=== PATIENT | female | born 1935 | race Caucasian/White ===

== ENCOUNTER 2018-04-10 15:28 | Observation (INO) ==
[2018-04-10] MEDS ORDERED: Morphine Sulfate Inj 8 MG/ML Vial IV.PUSH ONE (16:11)
[2018-04-10] MEDS ORDERED: Pantoprazole Inj 40 MG Vial IV.PUSH ONE (16:11)
[2018-04-10] MEDS ORDERED: Sod Chloride 0.9% Inj 1,000 ML IV.CONT SCH ×2 (16:15→20:00)
--- NOTE | 2018-04-10 16:48 | ED ---
HPI General Chief Complaint: Abdominal Pain Stated Complaint: sickness Time Seen by Provider: 04/10/18 15:56 History of Present Illness HPI narrative: 89-year-old female status post Y 90 procedure status post 5 days ago, presents today with complaints of worsening epigastric pain and pain under her ribs radiating to her back. Patient states that she called the interventional radiology department and they told her to come into the hospital she was likely having pain related to the procedure. She denies any fevers, chills. She denies any blood in her vomit. She denies any diarrhea. There are no other complaints at the time of my examination. Related Data Home Medications Medication Instructions Recorded Confirmed escitalopram oxalate [Lexapro] 10 mg PO DAILY 03/26/18 04/10/18 levothyroxine 75 mcg PO DAILY 03/26/18 04/10/18 lorazepam 1 mg PO BID 03/26/18 04/10/18 omeprazole magnesium [Prilosec OTC] 20 mg PO DAILY 03/26/18 04/10/18 Allergies Allergy/AdvReac Type Severity Reaction Status Date / Time cephalexin [From Keflex] AdvReac Severe Nausea Verified 04/05/18 10:39 Review of Systems ROS: all other systems reviewed are negative Constitutional Denies chills and Denies fever(s) Eyes Reports system reviewed and no additional complaints, except as docu ENT Reports system reviewed and no additional complaints, except as docu Cardiovascular Denies chest pain and Denies dyspnea Respiratory Denies chest congestion and Denies cough Gastrointestinal Reports abdominal pain (Epigastric under the ribs radiating to the back.), Denies hematochezia, Denies coffee ground emesis, Denies dyspepsia, Reports nausea and Reports vomiting Genitourinary Reports system reviewed and no additional complaints, except as docu Musculoskeletal Reports back pain and Denies neck pain Neurologic Denies headache(s), Denies focal weakness and Denies paresthesias [facility] Social History Social History Substance History: No History of Abuse Second Hand Smoke Exposure: No Smoking Status: Never smoker How Often Do You Have a Drink Containing Alcohol: Never [facility] within the Last 8 Weeks: No Recent Out of Country Travel within the Last 8 Weeks: No Immunization History Tetanus Immunization: Unsure Exam Narrative Exam Narrative: GENERAL: Well-developed well-nourished female in no acute respiratory distress. Patient does appear to be in discomfort. SKIN: Focused skin assessment warm/dry. HEAD: Atraumatic. Normocephalic. EYES: No scleral icterus. No injection or drainage. ENT: No nasal bleeding or discharge. Mucous membranes pink and moist. NECK: Trachea midline. Supple. CARDIOVASCULAR: Regular rate and rhythm. No murmur appreciated. RESPIRATORY: No accessory muscle use. Clear to auscultation. Breath sounds equal bilaterally. GASTROINTESTINAL: Abdomen soft, nondistended. Patient has subjective discomfort in epigastric area. No rebound or guarding. MUSCULOSKELETAL: No obvious deformities. No clubbing. No cyanosis. No edema. NEUROLOGICAL: Awake and alert. No obvious cranial nerve deficits. Motor grossly within normal limits. Normal speech. Course Initial Documented Vital Signs Temperature 98.2 F 04/10/18 15:46 Pulse Rate 77 04/10/18 15:46 Respiratory Rate 18 04/10/18 15:46 Blood Pressure 150/68 H 04/10/18 15:46 Pulse Oximetry 99 04/10/18 15:46 Last Documented Vital Signs Temperature 97.7 F 04/11/18 04:00 Pulse Rate 82 04/11/18 04:00 Respiratory Rate 16 04/11/18 04:00 Blood Pressure 159/83 H 04/11/18 04:00 Pulse Oximetry 97 04/11/18 04:00 Medical Decision Making [facility] Narrative Medical decision making narrative: 82-year-old female with T of hepatic cancer, presents today with complaints of ear pain under her ribs and epigastrium. Patient had a Y 90 procedure 5 days prior. Patient's labs are within normal limits. She is been medicated with morphine and an antiemetic. She is been given IV fluid. I spoke with the interventional radiologist who recommended we bring her in for bowel rest and IV fluids. Patient is amenable to this plan. Medical Screen Exam Complete: Yes Emergency Medical Condition: Yes Differential Diagnosis Differential Diagnosis: Pancreatitis versus perforated viscus versus metabolic derangement Lab Data Result diagrams: 04/11/18 06:23 04/10/18 16:48 Lab Results 04/10/18 04/10/18 04/11/18 Range/Units 16:47 16:48 06:23 WBC 7.7 7.2 (4.0-11.0) th/mm3 RBC 3.93 L 3.92 L (4.00-5.30) mil/mm3 Hgb 12.1 11.5 L (11.6-15.3) gm/dL Hct 35.0 35.3 (35.0-46.0) % MCV 89.2 90.1 (80.0-100.0) fL MCH 30.7 29.2 (27.0-34.0) pg MCHC 34.5 32.4 (32.0-36.0) % RDW 15.0 15.2 (11.6-17.2) % Plt Count 253 211 (150-450) th/mm3 MPV 7.7 7.6 (7.0-11.0) fL Neut % (Auto) 76.3 H 85.6 H (16.0-70.0) % Lymph % (Auto) 7.4 L 3.6 L (9.0-44.0) % [place] % (Auto) 14.6 H 10.4 H (0.0-8.0) % Eos % (Auto) 1.3 0.0 (0.0-4.0) % Baso % (Auto) 0.4 0.4 (0.0-2.0) % Neut # (Auto) 5.9 6.2 (1.8-7.7) th/mm3 Lymph # (Auto) 0.6 L 0.3 L (1.0-4.8) th/mm3 [place] # (Auto) 1.1 H 0.8 (0.0-0.9) th/mm3 Eos # (Auto) 0.1 0.0 (0.0-0.4) th/mm3 Baso # (Auto) 0.0 0.0 (0.0-0.2) th/mm3 WBC Differential . . Differential Comment Auto diff final Auto diff final Sodium 135 L (136-145) meq/L Potassium 3.8 (3.5-5.1) meq/L Chloride 97 L (98-107) meq/L Carbon Dioxide 31.6 (21.0-32.0) meq/L Anion Gap 6 (5-15) meq/L BUN 12 (7-18) mg/dL Creatinine 0.82 (0.50-1.00) mg/dL Estimated GFR 67 L (>89) mL/min Random Glucose 106 (74-106) mg/dL Calcium 8.9 (8.5-10.1) mg/dL Magnesium 2.0 (1.5-2.5) mg/dL Total Bilirubin 1.2 H (0.2-1.0) mg/dL AST 163 H (15-37) U/L ALT 122 H (10-53) U/L Alkaline Phosphatase 423 H (45-117) U/L Total Protein 7.2 (6.4-8.2) g/dL Albumin 3.0 L (3.4-5.0) g/dL Amylase 32 (25-115) U/L Lipase 124 (73-393) U/L Imaging Data Radiologist's impression: Abdomen X-Ray 04/10/18 16:33 CONCLUSION: Unremarkable upright abdomen. Discharge Plan Discharge Disposition Patient Disposition: ED Admit(ED Internal Use Only) Discharge Order Discharge Orders: ED Use Only Admit Order (Routine); Ordered 04/10/18 Ordered By: Favian Coronado Discharge Details Diagnosis: Abdominal pain Physicians Team ED Provider: Favian Coronado Primary Care Provider: Ed Smith Attending Provider: Jethro Live Other Providers: Wander Viramontes ; Merrick Merritt V Discharge Interventions Interventions: Vital Signs Last Done: 04/10/18 15:50 ED Discharge Assessment Last Done: 04/10/18 21:11 Status ED Status: Admitted Observation Patient
[2018-04-10 16:54] LABS: Baso % (Auto) 0.4 % (0.0-2.0); Eos # (Auto) 0.1 th/mm3 (0.0-0.4); Eos % (Auto) 1.3 % (0.0-4.0); Hemoglobin 12.1 gm/dL (11.6-15.3); Lymph # (Auto) 0.6 th/mm3 (1.0-4.8); Lymph % (Auto) 7.4 % (9.0-44.0); Mean Corpuscular HGB Conc 34.5 % (32.0-36.0); Mean Corpuscular Hemoglobin 30.7 pg (27.0-34.0); Mean Corpuscular Volume 89.2 fL (80.0-100.0); Mean Platelet Volume 7.7 fL (7.0-11.0); Mono # (Auto) 1.1 th/mm3 (0.0-0.9); Mono % (Auto) 14.6 % (0.0-8.0); Neut # (Auto) 5.9 th/mm3 (1.8-7.7); Neut % (Auto) 76.3 % (16.0-70.0); Platelet Count 253 th/mm3 (150-450); Red Blood Count 3.93 mil/mm3 (4.00-5.30); White Blood Count 7.7 th/mm3 (4.0-11.0)
[2018-04-10] MEDS ORDERED: Sodium Chlor 0.9% Inj 500 ML IV.SIG SCH (17:00)
--- NOTE | 2018-04-10 17:12 | XR ---
EXAM DATE: 04/10/2018 5:09 PM EST AGE/SEX: 82 years / Female INDICATIONS: Abdominal pain. Nausea. CLINICAL DATA: This is the patient's subsequent encounter. Patient reports that signs and symptoms h ave been present for 2 days and indicates a pain score of 7/10. MEDICAL/SURGICAL HISTORY: None. None. COMPARISON: No prior exams available for comparison. FINDINGS: A single erect view of the abdomen demonstrates the lower lungs to be clear. No evidence of free intr aperitoneal gas. The visualized bowel loops are unremarkable. CONCLUSION: Unremarkable upright abdomen. Electronically signed by: Amando Staton MD Board Certified Radiologist 04/10/2018 5:11 PM EST
[2018-04-10 17:17] LABS: Amylase 32 U/L (25-115); Anion Gap 6 meq/L (5-15); Aspartate Aminotransferase 163 U/L (15-37); Blood Urea Nitrogen 12 mg/dL (7-18); Calcium 8.9 mg/dL (8.5-10.1); Carbon Dioxide 31.6 meq/L (21.0-32.0); Chloride 97 meq/L (98-107); Glomerular Filtration Rate 67 mL/min (>89); Glucose,Random 106 mg/dL (74-106); Lipase 124 U/L (73-393); Potassium 3.8 meq/L (3.5-5.1); Sodium 135 meq/L (136-145)
[2018-04-10 17:19] LABS: Alanine Aminotransferase 122 U/L (10-53)
[2018-04-10 17:21] LABS: Alkaline Phosphatase 423 U/L (45-117); Total Protein 7.2 g/dL (6.4-8.2)
[2018-04-10] MEDS ORDERED: Bisacodyl 10 MG Supp RECTAL PRN (19:33)
[2018-04-10] MEDS ORDERED: Acetaminophen 325 MG Tablet PO PRN (19:33)
[2018-04-10] MEDS ORDERED: Morphine Inj 4 MG/ML Vial IV.PUSH PRN (19:36)
[2018-04-11] MEDS ORDERED: Pentoxifylline 400 MG Controlled Release Tablet PO SCH (00:10)
--- NOTE | 2018-04-11 00:10 | P.EN ---
Call received from Dr. Burgess, IR, who performed the Y90 procedure on the patient 04/05. He indicates that he is concerned about whether or not the patient may have developed/might be developing post-procedural radiation gastritis. He recommends the following: Protonix drip, Trental, and Sulfasalazine along with GI consult for upper endoscopy to evaluate for ulcerative erosions. He also requests that the daytime attending call him around noon 04/11 to discuss the case via phone.
[2018-04-11] MEDS ORDERED: sulfaSALAzine 500 MG Tablet PO SCH (00:15)
[2018-04-11] MEDS ORDERED: Pantoprazole Inj 80 MG in Sodium Chlor 0.9% Inj 100 ML IV.CONT SCH (01:00)
[2018-04-11] MEDS ORDERED: Morphine Inj 4 MG/ML Vial IV.PUSH ONE (03:29)
[2018-04-11] MEDS ORDERED: Aluminum/Magnesium/Simethacone Susp 30 ML UDC PO ONE (03:30)
[2018-04-11] MEDS ORDERED: Labetalol HCl Inj 100 MG/20 ML Vial IV.PUSH ONE (03:31)
[2018-04-11 06:52] LABS: Baso % (Auto) 0.4 % (0.0-2.0); Hematocrit 35.3 % (35.0-46.0); Hemoglobin 11.5 gm/dL (11.6-15.3); Lymph # (Auto) 0.3 th/mm3 (1.0-4.8); Lymph % (Auto) 3.6 % (9.0-44.0); Mean Corpuscular HGB Conc 32.4 % (32.0-36.0); Mean Corpuscular Hemoglobin 29.2 pg (27.0-34.0); Mean Corpuscular Volume 90.1 fL (80.0-100.0); Mean Platelet Volume 7.6 fL (7.0-11.0); Mono # (Auto) 0.8 th/mm3 (0.0-0.9); Mono % (Auto) 10.4 % (0.0-8.0); Neut # (Auto) 6.2 th/mm3 (1.8-7.7); Neut % (Auto) 85.6 % (16.0-70.0); Platelet Count 211 th/mm3 (150-450); Red Blood Count 3.92 mil/mm3 (4.00-5.30); Red Cell Distribution Width 15.2 % (11.6-17.2); White Blood Count 7.2 th/mm3 (4.0-11.0)
[2018-04-11 07:19] LABS: Calcium 8.5 mg/dL (8.5-10.1); Carbon Dioxide 25.4 meq/L (21.0-32.0); Potassium 3.5 meq/L (3.5-5.1)
--- NOTE | 2018-04-11 10:25 | P.CONGI ---
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 Onset of symptoms approximately 2 days before admission and worsening epigastric pain radiating into her back, and to the point she felt the need to be evaluated. Patient denies any chills or fever denies any diarrhea or constipation denies any melena stools or bright red rectal bleeding. Labs were reviewed which includes current hemoglobin 11.5, PT/ INR 1.2, elevated AST 163, elevated ALT 122, alkaline phosphatase 423. Patient has history of cholecystectomy as well as endoscopies x3 during December 2017 which included to esophageal dilatations. Currently patient denies any dysphasia or choking episodes. 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 Gastroenterology has been called to evaluate upper GI symptoms of possible radiation gastritis and nausea. Review of Systems All other systems reviewed negative except as stated in HPI PMFSH - History History Provided By: Patient - Medical History Medical History: Medical History (Last Reviewed 04/11/18 @ 08:02 by Joaquín Smith) Back pain Bile duct cancer Breast cancer Cataract H/O: hysterectomy Hyperlipemia Irritable bowel syndrome (IBS) Kidney stones LPRD (laryngopharyngeal reflux disease) Liver cancer - Surgical History Surgical History: Surgical History (Last Reviewed 04/11/18 @ 08:02 by Joaquín Smith) H/O lumpectomy History of cholecystectomy - Family History Family History: Family History (Last Reviewed 04/10/18 @ 17:56 by Kinza Mcclellan MD) Other Heart problem - Tobacco History Second Hand Smoke Exposure: No Smoking Status: Never smoker - Alcohol History How Often Do You Have a Drink Containing Alcohol: Never - Substance Use History Substance History: No History of Abuse - Travel History Recent Travel in the [place] Within the Last 8 Weeks: No Recent Travel Out of the Country Within the Last 8 Weeks: No - Immunization History Tetanus Immunization: Unsure Medications and Allergies Active Medications: Active Medications Acetaminophen (Tylenol) 650 mg PO Q4H PRN PRN Reason: Temp > 100.4 Last Admin: 04/10/18 23:26 Dose: 650 mg Hydrocodone Bitart/Acetaminophen ([place] 5/325) 1 tab PO Q4H PRN PRN Reason: pain 2-4 /able PO Al Hydroxide/Mg Hydroxide (Milk Of Magnesia Liq) 30 ml PO Q12H PRN PRN Reason: Mild Constipation Bisacodyl (Dulcolax Supp) 10 mg RECTAL DAILY PRN PRN Reason: SEVERE CONSITIPATION Sodium Chloride (Ns Inj) 1,000 mls @ 100 mls/hr IV.CONT .Q10H [facility] Last Admin: 04/10/18 21:34 Dose: 100 mls/hr Pantoprazole Sodium 80 mg/ (Sodium Chloride) 100 mls @ 10 mls/hr IV.CONT Q10H [facility] Last Admin: 04/11/18 01:22 Dose: 10 mls/hr Lactulose (Lactulose Liq) 30 ml PO DAILY PRN PRN Reason: SEVERE CONSITIPATION Morphine Sulfate (Morphine Inj) 2 mg IV.PUSH Q4H PRN PRN Reason: pain > 5 if unable PO Last Admin: 04/10/18 22:45 Dose: 2 mg Ondansetron HCl (Zofran Inj) 4 mg IV.PUSH Q6H PRN PRN Reason: NAUSEA OR VOMITING Last Admin: 04/10/18 22:46 Dose: 4 mg Pentoxifylline (Trental Sr) 400 mg PO DAILY [facility] Last Admin: 04/11/18 01:23 Dose: 400 mg Sodium Chloride (Ns Flush) 2 ml IV.FLUSH BID [facility] Last Admin: 04/10/18 21:34 Dose: 2 ml Sodium Chloride (Ns Flush) 2 ml IV.FLUSH PRN PRN PRN Reason: FLUSH AFTER USING IV ACCESS Sulfasalazine (Azulfidine) 500 mg PO TID [facility] Last Admin: 04/11/18 01:23 Dose: 500 mg Allergies Allergy/AdvReac Type Severity Reaction Status Date / Time cephalexin [From Keflex] AdvReac Severe Nausea Verified 04/05/18 10:39 Home Medications Medication Instructions Recorded Confirmed Type escitalopram oxalate [Lexapro] 10 mg PO DAILY 03/26/18 04/10/18 History levothyroxine 75 mcg PO DAILY 03/26/18 04/10/18 History lorazepam 1 mg PO BID 03/26/18 04/10/18 History omeprazole magnesium [Prilosec OTC] 20 mg PO DAILY 03/26/18 04/10/18 History Exam Vital signs: Vital Signs 04/10/18 15:46 04/10/18 15:50 04/10/18 20:00 Temperature 98.2 F 98.0 F Pulse Rate 77 78 96 H Respiratory Rate 18 22 16 Blood Pressure 150/68 H 162/72 H 185/79 H Pulse Oximetry 99 99 96 04/11/18 00:00 04/11/18 04:00 Temperature 98.2 F 97.7 F Pulse Rate 84 82 Respiratory Rate 16 16 Blood Pressure 173/81 H 159/83 H Pulse Oximetry 99 97 Intake & Output 04/10/18 04/11/18 04/11/18 18:59 06:59 18:59 Intake Total 500 / 500 Balance 500 / 500 Weight 53.07 kg 54 kg Intake: IV 500 / 500 NS Inj 500 ML @ 1000 mls/hr IV. 500 / 500 SIG BOLUS LESLEE Rx#:[id number] Other: # Voids 3 - Constitutional mild distress, thin, cachectic, chronically ill appearing - Routine HEENT Exam Head: Present: normocephalic ENT: Present: mucous membranes dry - Routine Neck Exam Present: supple - Routine Respiratory Exam Present: CTA bilaterally (No obvious wheezing or rhonchi) - Routine Cardiovascular Exam Present: S1, S2 - Routine Abdominal Exam Present: normoactive bowel sounds, tenderness (Right upper quadrant, gastric area) - Routine Skin Exam Present: intact, pallor Results - Labs CBC & Chem 7: 04/11/18 06:23 04/11/18 06:23 Labs: Laboratory Results - last 24 hr 04/10/18 04/10/18 04/11/18 16:47 16:48 06:23 WBC 7.7 7.2 RBC 3.93 L 3.92 L Hgb 12.1 11.5 L Hct 35.0 35.3 MCV 89.2 90.1 MCH 30.7 29.2 MCHC 34.5 32.4 RDW 15.0 15.2 Plt Count 253 211 MPV 7.7 7.6 Neut % (Auto) 76.3 H 85.6 H Lymph % (Auto) 7.4 L 3.6 L [place] % (Auto) 14.6 H 10.4 H Eos % (Auto) 1.3 0.0 Baso % (Auto) 0.4 0.4 Neut # (Auto) 5.9 6.2 Lymph # (Auto) 0.6 L 0.3 L [place] # (Auto) 1.1 H 0.8 Eos # (Auto) 0.1 0.0 Baso # (Auto) 0.0 0.0 WBC Differential . . Differential Comment Auto diff final Auto diff final Sodium 135 L Potassium 3.8 Chloride 97 L Carbon Dioxide 31.6 Anion Gap 6 BUN 12 Creatinine 0.82 Estimated GFR 67 L Random Glucose 106 Calcium 8.9 Magnesium 2.0 Total Bilirubin 1.2 H AST 163 H ALT 122 H Alkaline Phosphatase 423 H Total Protein 7.2 Albumin 3.0 L Amylase 32 Lipase 124 04/11/18 06:23 WBC RBC Hgb Hct MCV MCH MCHC RDW Plt Count MPV Neut % (Auto) Lymph % (Auto) [place] % (Auto) Eos % (Auto) Baso % (Auto) Neut # (Auto) Lymph # (Auto) [place] # (Auto) Eos # (Auto) Baso # (Auto) WBC Differential Differential Comment Sodium 137 Potassium 3.5 Chloride 102 Carbon Dioxide 25.4 Anion Gap 10 BUN 8 Creatinine 0.65 Estimated GFR 88 L Random Glucose 121 H Calcium 8.5 Magnesium Total Bilirubin AST ALT Alkaline Phosphatase Total Protein Albumin Amylase Lipase - Imaging Impressions Abdomen X-Ray 04/10/18 16:33 CONCLUSION: Unremarkable upright abdomen. Assessment and Plan - Plan 1. mid gastric and epigastric pain and to right upper quadrant with associated nausea. Onset of symptoms approximately 2 days before admission and worsening epigastric pain radiating into her back, and to the point she felt the need to be evaluated. Also notes some right upper quadrant soreness radiating into her back. The symptoms could be related to radiation gastritis since patient is status post IR Y 90 radial embolization on 04/05/2018. Currently patient has been started on Protonix drip and is also receiving IV hydration which has improved her symptoms. 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 Patient is currently declining EGD and is hoping to go home today. Report of care given and discussed with her recommendations from a gastroenterology standpoint. Monitor lab Pain meds per attending patient states she has been taking Tylenol alternating with tramadol Supportive care Continue IV fluids and IV Protonix drip for now Further recommendations to follow Patient was seen per myself and Dr. Merritt, note was written on his behalf
--- NOTE | 2018-04-11 10:40 | P.HP ---
History of Present Illness Primary Care Physician: Ed Smith Chief Complaint: Abdominal pain History of Present Illness: 82-year-old female with a history of liver cancer, who recently underwent Y 90 radioembolization on 04/05/2018, presented to the hospital yesterday with symptoms of mid epigastric and epigastric pain mostly in the right upper quadrant with radiation to her back and associated with nausea which started 2 days after her procedure on 05 April. She reported dry heaves on April 09, 2018 however denies any current emesis. Has any bladder or bowel dysfunction. Gastroenterology has been consulted. Review of Systems All other systems reviewed negative except as stated in HPI PMFSH - History History Provided By: Patient - Medical History Medical History: Medical History (Last Reviewed 04/11/18 @ 08:02 by Joaquín Smith) Back pain Bile duct cancer Breast cancer Cataract H/O: hysterectomy Hyperlipemia Irritable bowel syndrome (IBS) Kidney stones LPRD (laryngopharyngeal reflux disease) Liver cancer - Surgical History Surgical History: Surgical History (Last Reviewed 04/11/18 @ 08:02 by Joaquín Smith) H/O lumpectomy History of cholecystectomy - Family History Family History: Family History (Last Reviewed 04/10/18 @ 17:56 by Kinza Mcclellan MD) Other Heart problem - Tobacco History Second Hand Smoke Exposure: No Smoking Status: Never smoker - Alcohol History How Often Do You Have a Drink Containing Alcohol: Never - Substance Use History Substance History: No History of Abuse - Travel History Recent Travel in the [place] Within the Last 8 Weeks: No Recent Travel Out of the Country Within the Last 8 Weeks: No - Immunization History Tetanus Immunization: Unsure Medications and Allergies Active Medications: Active Medications Acetaminophen (Tylenol) 650 mg PO Q4H PRN PRN Reason: Temp > 100.4 Last Admin: 04/10/18 23:26 Dose: 650 mg Hydrocodone Bitart/Acetaminophen ([place] 5/325) 1 tab PO Q4H PRN PRN Reason: pain 2-4 /able PO Al Hydroxide/Mg Hydroxide (Milk Of Magnesia Liq) 30 ml PO Q12H PRN PRN Reason: Mild Constipation Bisacodyl (Dulcolax Supp) 10 mg RECTAL DAILY PRN PRN Reason: SEVERE CONSITIPATION Sodium Chloride (Ns Inj) 1,000 mls @ 100 mls/hr IV.CONT .Q10H LESLEE Last Admin: 04/10/18 21:34 Dose: 100 mls/hr Pantoprazole Sodium 80 mg/ (Sodium Chloride) 100 mls @ 10 mls/hr IV.CONT Q10H [facility] Last Admin: 04/11/18 01:22 Dose: 10 mls/hr Lactulose (Lactulose Liq) 30 ml PO DAILY PRN PRN Reason: SEVERE CONSITIPATION Morphine Sulfate (Morphine Inj) 2 mg IV.PUSH Q4H PRN PRN Reason: pain > 5 if unable PO Last Admin: 04/10/18 22:45 Dose: 2 mg Ondansetron HCl (Zofran Inj) 4 mg IV.PUSH Q6H PRN PRN Reason: NAUSEA OR VOMITING Last Admin: 04/10/18 22:46 Dose: 4 mg Pentoxifylline (Trental Sr) 400 mg PO DAILY [facility] Last Admin: 04/11/18 01:23 Dose: 400 mg Sodium Chloride (Ns Flush) 2 ml IV.FLUSH BID [facility] Last Admin: 04/10/18 21:34 Dose: 2 ml Sodium Chloride (Ns Flush) 2 ml IV.FLUSH PRN PRN PRN Reason: FLUSH AFTER USING IV ACCESS Sulfasalazine (Azulfidine) 500 mg PO TID [facility] Last Admin: 04/11/18 01:23 Dose: 500 mg Allergies Allergy/AdvReac Type Severity Reaction Status Date / Time cephalexin [From Keflex] AdvReac Severe Nausea Verified 04/05/18 10:39 Home Medications Medication Instructions Recorded Confirmed Type escitalopram oxalate [Lexapro] 10 mg PO DAILY 03/26/18 04/10/18 History levothyroxine 75 mcg PO DAILY 03/26/18 04/10/18 History lorazepam 1 mg PO BID 03/26/18 04/10/18 History omeprazole magnesium [Prilosec OTC] 20 mg PO DAILY 03/26/18 04/10/18 History Exam Vital signs: Vital Signs 04/10/18 15:46 04/10/18 15:50 04/10/18 20:00 Temperature 98.2 F 98.0 F Pulse Rate 77 78 96 H Respiratory Rate 18 22 16 Blood Pressure 150/68 H 162/72 H 185/79 H Pulse Oximetry 99 99 96 04/11/18 00:00 04/11/18 04:00 Temperature 98.2 F 97.7 F Pulse Rate 84 82 Respiratory Rate 16 16 Blood Pressure 173/81 H 159/83 H Pulse Oximetry 99 97 Intake & Output 04/10/18 04/11/18 04/11/18 18:59 06:59 18:59 Intake Total 500 / 500 Balance 500 / 500 Weight 53.07 kg 54 kg Intake: IV 500 / 500 NS Inj 500 ML @ 1000 mls/hr IV. 500 / 500 SIG BOLUS LESLEE Rx#:[id number] Other: # Voids 3 Narrative: GENERAL: thin elderly female in NAD SKIN: Warm and dry. HEAD: Atraumatic. Normocephalic. EYES: Pupils equal and round. No scleral icterus. No injection or drainage. ENT: No nasal bleeding or discharge. Mucous membranes pink and moist. NECK: Trachea midline. No JVD. CARDIOVASCULAR: Regular rate and rhythm. RESPIRATORY: No accessory muscle use. Clear to auscultation. Breath sounds equal bilaterally. GASTROINTESTINAL: Abdomen soft, non-tender, nondistended. Hepatic and splenic margins not palpable. MUSCULOSKELETAL: Extremities without clubbing, cyanosis, or edema. No obvious deformities. NEUROLOGICAL: Awake and alert. No obvious cranial nerve deficits. Motor grossly within normal limits. Five out of 5 muscle strength in the arms and legs. Normal speech. PSYCHIATRIC: Appropriate mood and affect; insight and judgment normal. Results - Labs CBC & Chem 7: 04/11/18 06:23 04/11/18 06:23 Labs: Laboratory Results - last 24 hr 04/10/18 04/10/18 04/11/18 16:47 16:48 06:23 WBC 7.7 7.2 RBC 3.93 L 3.92 L Hgb 12.1 11.5 L Hct 35.0 35.3 MCV 89.2 90.1 MCH 30.7 29.2 MCHC 34.5 32.4 RDW 15.0 15.2 Plt Count 253 211 MPV 7.7 7.6 Neut % (Auto) 76.3 H 85.6 H Lymph % (Auto) 7.4 L 3.6 L Frederick % (Auto) 14.6 H 10.4 H Eos % (Auto) 1.3 0.0 Baso % (Auto) 0.4 0.4 Neut # (Auto) 5.9 6.2 Lymph # (Auto) 0.6 L 0.3 L Frederick # (Auto) 1.1 H 0.8 Eos # (Auto) 0.1 0.0 Baso # (Auto) 0.0 0.0 WBC Differential . . Differential Comment Auto diff final Auto diff final Sodium 135 L Potassium 3.8 Chloride 97 L Carbon Dioxide 31.6 Anion Gap 6 BUN 12 Creatinine 0.82 Estimated GFR 67 L Random Glucose 106 Calcium 8.9 Magnesium 2.0 Total Bilirubin 1.2 H AST 163 H ALT 122 H Alkaline Phosphatase 423 H Total Protein 7.2 Albumin 3.0 L Amylase 32 Lipase 124 04/11/18 06:23 WBC RBC Hgb Hct MCV MCH MCHC RDW Plt Count MPV Neut % (Auto) Lymph % (Auto) Frederick % (Auto) Eos % (Auto) Baso % (Auto) Neut # (Auto) Lymph # (Auto) Frederick # (Auto) Eos # (Auto) Baso # (Auto) WBC Differential Differential Comment Sodium 137 Potassium 3.5 Chloride 102 Carbon Dioxide 25.4 Anion Gap 10 BUN 8 Creatinine 0.65 Estimated GFR 88 L Random Glucose 121 H Calcium 8.5 Magnesium Total Bilirubin AST ALT Alkaline Phosphatase Total Protein Albumin Amylase Lipase - Imaging Impressions Abdomen X-Ray 04/10/18 16:33 CONCLUSION: Unremarkable upright abdomen. Caprini VTE Risk Assessment Caprini VTE Risk Assessment: Moderate/High Risk (score >= 2) Caprini Risk Assessment Model: Point Value = 1 Point Value = 2 Point Value = 3 Point Value = 5 Age 41-60 Minor surgery BMI > 25 kg/m2 Swollen legs Varicose veins or History of unexplained or recurrent spontaneous Oral contraceptives or hormone replacement Sepsis (< 1 month) Serious lung disease, including pneumonia (< 1 month) Abnormal pulmonary function Acute myocardial infarction Congestive heart failure (< 1 month) History of inflammatory bowel disease Medical patient at bed rest Age 61-74 Arthroscopic surgery Major open surgery (> 45 min) Laparoscopic surgery (> 45 min) Malignancy Confined to bed (> 72 hours) Immobilizing plaster cast Central venous access Age >= 75 History of VTE Family history of VTE Factor V Leiden Prothrombin [id number] Lupus anticoagulant Anticardiolipin antibodies Elevated serum homocysteine Heparin-induced thrombocytopenia Other congenital or acquired thrombophilia Stroke (< 1 month) Elective arthroplasty Hip, pelvis, or leg fracture Acute spinal cord injury (< 1 month) Prophylaxis Regimen: Total Risk Factor Score Risk Level Prophylaxis Regimen 0-1 Low Early ambulation 2 Moderate Order ONE of the following: *Sequential Compression Device (SCD) *Heparin 5000 units SQ BID 3-4 Higher Order ONE of the following medications: *Heparin 5000 units SQ TID *Enoxaparin/Lovenox 40 mg SQ daily (WT < 150 kg, CrCl > 30 mL/min) *Enoxaparin/Lovenox 30 mg SQ daily (WT < 150 kg, CrCl > 10-29 mL/min) *Enoxaparin/Lovenox 30 mg SQ BID (WT < 150 kg, CrCl > 30 mL/min) AND/OR *Sequential Compression Device (SCD) 5 or more Highest Order ONE of the following medications: *Heparin 5000 units SQ TID (Preferred with Epidurals) *Enoxaparin/Lovenox 40 mg SQ daily (WT < 150 kg, CrCl > 30 mL/min) *Enoxaparin/Lovenox 30 mg SQ daily (WT < 150 kg, CrCl > 10-29 mL/min) *Enoxaparin/Lovenox 30 mg SQ BID (WT < 150 kg, CrCl > 30 mL/min) AND *Sequential Compression Device (SCD) Assessment and Plan - Plan 82-year-old female with History of liver cancer s/p Y procedure 04/05/18 Epigastric/RUQ abdominal pain Postprocedure radiation gastritis? Currently on PPI drip Gastroenterology has been consulted for further evaluation Pain management accordingly History of liver cancer Outpatient management with oncology Transaminitis To be secondary to history of liver cancer versus complication from postprocedure radiation Elevated BP Likely secondary to poor control pain PRN Vasotec Hypothyroidism, anxiety and depression Resume outpatient medications
[2018-04-11 13:08] VITALS: BP 167/79; PULSE 76; RESP 18; TEMP 98.9; O2SAT 99
--- NOTE | 2018-04-11 14:49 | P.AMA ---
AMA Note AMA Statement: Patient Lazara Martinez has decided to leave the hospital against medical advice. This patient has the capacity to refuse care and understands the risks of leaving, including permanent disability and/or , and has had an opportunity to ask questions about his/her condition. The patient has been informed that he/she may return for care at any time, and follow up has been arranged/advised. Discharge Disposition: Against Medical Advice
[2018-04-11] MEDS ORDERED: LORazepam 1 MG Tablet PO SCH (21:00)
[2018-04-12] MEDS ORDERED: Levothyroxine 75 MCG Tablet PO SCH (06:00)
[2018-04-12] MEDS ORDERED: Escitalopram 10 MG Tablet PO SCH (09:00)
== END 2018-04-11 13:40 | disposition left against medical advice (07) ==
LOC: NEPC 15:28 → NEDA 15:28 → HCIN 21:05
PROVIDERS: ADMIT Hospitalist; ATTEND Hospitalist
CPT/HCPCS: 74000; 74018; 80048; 80053; 82150; 83690; 83735; 85025; 90761; 90774; 90775; 90784; 96361; 96374; 96375; 96376; 97161; 99285; C8952; C9113; G0378; G8987; G8988; J0780; J2270; J2405; J7030; J7040